=== PATIENT | male | born 1960 | race Caucasian/White ===

== ENCOUNTER 2022-09-14 08:00 | Day surgery (SDC) | payer OTHER ==
[~2022-09-14 08:00] MED LIST: Sodium Chloride 0.9% 1,000 ML IV SCH; Sodium Chloride 0.9% 10 ML Syringe FLUSH PRN
[2022-09-14] MEDS ORDERED: Propofol 200 MG/20 ML SDV IV ONE (08:01)
[2022-09-14] MEDS ORDERED: Bupivacaine 0.5%/EPINEPHrine 1:200,000 50 ML MDV ONE (08:31)
[2022-09-14] MEDS ORDERED: ceFAZolin 1 GM Vial ONE ×2 (08:31→08:49)
[2022-09-14] MEDS ORDERED: Bacitracin/Neomycin/Polymyxin B Oint 0.9 GM U/D Packet ONE (08:31)
[2022-09-14] MEDS ORDERED: Propofol 200 MG/20 ML SDV ONE ×4 (08:49→10:13)
[2022-09-14] MEDS ORDERED: Midazolam 1 MG/ML 2 ML SDV ONE (08:49)
[2022-09-14] MEDS ORDERED: fentaNYL 100 MCG/2 ML SDV ONE (08:49)
[2022-09-14] MEDS ORDERED: Ketamine 200 MG/20 ML MDV ONE (08:50)
[2022-09-14] MEDS ORDERED: Bupivacaine 0.5%/EPINEPHrine 1:200,000 50 ML MDV INFILT ONE (09:05)
[2022-09-14] MEDS ORDERED: Bacitracin/Neomycin/Polymyxin B Oint 0.9 GM U/D Packet TOP ONE (09:05)
[2022-09-14] MEDS ORDERED: Lactated Ringers 1,000 ML ONE (09:25)
== END 2022-09-14 11:20 | disposition home or self-care (01) ==
LOC: KA.SDS 08:00
PROVIDERS: ATTEND Surgery
DX: K42.9 Umbilical hernia without obstruction or gangrene (principal); E03.9 Hypothyroidism, unspecified; E78.00 Pure hypercholesterolemia, unspecified; J45.909 Unspecified asthma, uncomplicated; E11.9 Type 2 diabetes mellitus without complications; G47.30 Sleep apnea, unspecified; Z88.8 Allergy status to other drugs, medicaments and biological substances; Z79.899 Other long term (current) drug therapy; Z79.82 Long term (current) use of aspirin; Z79.890 Hormone replacement therapy; Z98.890 Other specified postprocedural states
CPT/HCPCS: 49593; 82947; J0690; J2250; J2704; J3010; J3490; J7030; J7120

== ENCOUNTER 2023-03-04 09:24 | Emergency (ER) | payer OTHER ==
[2023-03-04] MEDS ORDERED: HYDROmorphone 1 MG/ML Syringe IVPUSH ONE (09:48)
[2023-03-04] MEDS ORDERED: Ketorolac 30 MG/ML SDV IVPUSH ONE (09:48)
[2023-03-04 10:00] LABS: BASOPHILS ABSOLUTE AUTO 0.03 10^3/uL (0.00-0.10); BASOPHILS PERCENT AUTO 0.3 % (0.0-1.0); EOSINOPHILS ABSOLUTE AUTO 0.09 10^3/uL (0.10-0.30); EOSINOPHILS PERCENT AUTO 0.9 % (1.0-3.0); HEMATOCRIT 50.4 % (40.0-52.0); IMMATURE GRAN ABSOLUTE AUTO 0.05 10^3/uL (0.00-0.50); IMMATURE GRAN PERCENT AUTO 0.5 % (0.0-5.0); LYMPHOCYTES ABSOLUTE AUTO 0.52 10^3/uL (1.00-4.00); LYMPHOCYTES PERCENT AUTO 5.4 % (20.0-40.0); MEAN CORPUSCULAR HEMOGLOBIN 29.7 pg (27.0-31.0); MEAN CORPUSCULAR HGB CONC 33.7 g/dL (32.0-36.0); MEAN PLATELET VOLUME 9.1 fL (7.4-10.4); MONOCYTES ABSOLUTE AUTO 1.38 10^3/uL (0.10-0.80); MONOCYTES PERCENT AUTO 14.2 % (2.0-8.0); NEUTROPHILS ABSOLUTE AUTO 7.64 10^3/uL (2.50-7.00); NEUTROPHILS PERCENT AUTO 78.7 % (50.0-70.0); PLATELET COUNT,PLT 278 10^3/uL (150-400); RED BLOOD CELL COUNT 5.73 10^6/uL (4.50-6.00); RED CELL DISTRIBUTION WIDTH 12.9 % (11.5-14.5); WHITE BLOOD CELL COUNT,WBC 9.71 10^3/uL (5.00-10.00)
[2023-03-04] MEDS ORDERED: Ondansetron 4 MG/2 ML SDV ONE (10:03)
[2023-03-04] MEDS ORDERED: Ondansetron 4 MG/2 ML SDV IVPUSH ONE (10:04)
[2023-03-04 10:15] LABS: ALBUMIN 3.83 g/dL (3.40-5.00); ANION GAP 16.2 mmol/L (5-15); BILIRUBIN TOTAL 0.6 mg/dL (0.2-1.0); CALCIUM 8.7 mg/dL (8.7-10.3); CARBON DIOXIDE,CO2 22.8 mmol/L (21.0-32.0); CREATININE 0.92 mg/dL (0.51-1.17); EST CRCL DRUG DOSING (CG) 86.39 mL/min; PROTEIN TOTAL,TP 7.4 g/dL (6.4-8.2)
[2023-03-04 10:41] LABS: APPEARANCE,URINE CLEAR (CLEAR); BACTERIA,URINE OCCASIONAL /HPF (NONE TO FEW); BILIRUBIN,URINE NEGATIVE (NEGATIVE); COLOR,URINE YELLOW (YELLOW); EPITHELIAL CELLS,URINE RARE /LPF; GLUCOSE,URINE >=1000 mg/dL (NEGATIVE); KETONES,URINE 40 mg/dL (NEGATIVE); LEUKOCYTE ESTERASE,URINE NEGATIVE (NEGATIVE); NITRITE,URINE NEGATIVE (NEGATIVE); OCCULT BLOOD,URINE TRACE-INTACT (NEGATIVE); PH,URINE 5.5 (5.0-9.0); PROTEIN,URINE NEGATIVE (NEGATIVE); RBC,URINE 0-5 /HPF (0-5); UROBILINOGEN,URINE 0.2 E.U./dL (0.2-1.0); WBC,URINE 0-5 /HPF (0-5)
== END 2023-03-04 11:03 | disposition home or self-care (01) ==
LOC: KA.ED 09:24
DX: M54.16 Radiculopathy, lumbar region (principal); M53.3 Sacrococcygeal disorders, not elsewhere classified; G89.29 Other chronic pain; R81 Glycosuria; J45.909 Unspecified asthma, uncomplicated; Z79.82 Long term (current) use of aspirin; Z79.899 Other long term (current) drug therapy; Z88.8 Allergy status to other drugs, medicaments and biological substances
CPT/HCPCS: 71045; 80053; 81001; 85025; 96374; 96375; 99283-25; J1170; J1885; J2405

== ENCOUNTER 2024-07-13 14:34 | Emergency (ER) | payer OTHER ==
[2024-07-13] MEDS: methylPREDNISolone Sodium Succinate 125 MG/2 ML SDV IVPUSH ONE (15:14)
[2024-07-13] MEDS: HYDROmorphone 2 MG/ML Syringe IVPUSH ONE (15:18)
[2024-07-13] MEDS: methylPREDNISolone Sodium Succinate 125 MG/2 ML SDV ONE (15:20)
[2024-07-13] MEDS: HYDROmorphone 2 MG/ML Syringe ONE (15:20)
[2024-07-13] MEDS: Sodium Chloride 0.9% 50 ML IV SCH (15:29)
[2024-07-13] MEDS: Sodium Chloride 0.9% 50 ML ONE (16:46)
[2024-07-13 17:04] VITALS: BP 127/90; PULSE 87
== END 2024-07-13 16:20 | disposition home or self-care (01) ==
LOC: KA.ED 14:34
DX: M48.061 Spinal stenosis, lumbar region without neurogenic claudication (principal); J45.909 Unspecified asthma, uncomplicated; Z88.8 Allergy status to other drugs, medicaments and biological substances; Z79.51 Long term (current) use of inhaled steroids; Z79.82 Long term (current) use of aspirin; Z79.890 Hormone replacement therapy; Z79.899 Other long term (current) drug therapy
CPT/HCPCS: 72110; 96365; 96375; 99283-25; J1171; J2800; J2919; J3490